=== PATIENT | female | born 1950 | race Caucasian/White ===

== ENCOUNTER → 2023-11-26 10:19 | Outpatient (REF) | payer MEDICARE, SELFPAY | LOC: HWRAD 10:19 | PROVIDERS: ATTENDING PHYSICIAN Nurse Practitioner Family; FAMILY PHYSICIAN Family Medicine | DX: C18.7 Malignant neoplasm of sigmoid colon (principal) | CPT/HCPCS: 71260; 74177; Q9967 ==

== ENCOUNTER → 2023-12-19 06:29 | Day surgery (SDC) | payer MEDICARE, SELFPAY | LOC: GI 06:29 | PROVIDERS: ATTENDING PHYSICIAN Surgery | DX: Z12.11 Encounter for screening for malignant neoplasm of colon (principal); D12.0 Benign neoplasm of cecum; D12.2 Benign neoplasm of ascending colon; K57.30 Diverticulosis of large intestine without perforation or abscess without bleeding; Z85.038 Personal history of other malignant neoplasm of large intestine; Z98.0 Intestinal bypass and anastomosis status | CPT/HCPCS: 45385; 45380; 45381; 88305 ==

== ENCOUNTER 2024-01-03 09:53 | Outpatient (RCR) | payer MEDICARE, SELFPAY | END 2024-01-03 23:59 | disposition home or self-care (01) | LOC: RPT 09:53 | PROVIDERS: ATTENDING PHYSICIAN Family Medicine | DX: G20.A1 Parkinson's disease without dyskinesia, without mention of fluctuations (principal); Z73.6 Limitation of activities due to disability; R26.2 Difficulty in walking, not elsewhere classified; M62.81 Muscle weakness (generalized) | CPT/HCPCS: 97110; 97112; 97163; 97530 ==

== ENCOUNTER 2024-02-04 09:54 | Outpatient (RCR) | payer MEDICARE, SELFPAY | END 2024-02-04 23:59 | disposition home or self-care (01) | LOC: RPT 09:54 | PROVIDERS: ATTENDING PHYSICIAN Family Medicine | DX: G20.A1 Parkinson's disease without dyskinesia, without mention of fluctuations (principal); Z73.6 Limitation of activities due to disability; R26.2 Difficulty in walking, not elsewhere classified; M62.81 Muscle weakness (generalized) | CPT/HCPCS: 97110; 97112; 97116; 97530 ==

== ENCOUNTER 2024-03-04 10:55 | Outpatient (RCR) | payer MEDICARE, SELFPAY | END 2024-03-04 23:59 | disposition home or self-care (01) | LOC: RPT 10:55 | PROVIDERS: ATTENDING PHYSICIAN Family Medicine | DX: G20.A1 Parkinson's disease without dyskinesia, without mention of fluctuations (principal); Z73.6 Limitation of activities due to disability; R26.2 Difficulty in walking, not elsewhere classified; M62.81 Muscle weakness (generalized) | CPT/HCPCS: 97010; 97110; 97112; 97116; 97530 ==

== ENCOUNTER 2024-03-27 11:57 | Outpatient (RCR) | payer MEDICARE, SELFPAY | END 2024-03-27 23:59 | disposition home or self-care (01) | LOC: RPT 11:57 | PROVIDERS: ATTENDING PHYSICIAN Family Medicine | DX: G20.A1 Parkinson's disease without dyskinesia, without mention of fluctuations (principal); Z73.6 Limitation of activities due to disability; R26.2 Difficulty in walking, not elsewhere classified; M62.81 Muscle weakness (generalized) | CPT/HCPCS: 97110; 97112; 97530 ==

== ENCOUNTER → 2024-05-01 07:07 | Outpatient (REF) | payer MEDICARE, SELFPAY | LOC: PAVMRI 07:07 | PROVIDERS: ATTENDING PHYSICIAN Student in an Organized Health Care Education/Training Program; FAMILY PHYSICIAN Family Medicine | DX: M47.816 Spondylosis without myelopathy or radiculopathy, lumbar region (principal); M48.062 Spinal stenosis, lumbar region with neurogenic claudication | CPT/HCPCS: 72148 ==

== ENCOUNTER 2024-06-06 09:50 | Outpatient (RCR) | payer MEDICARE, SELFPAY | END 2024-06-06 23:59 | disposition home or self-care (01) | LOC: ROT 09:50 | PROVIDERS: ATTENDING PHYSICIAN Family Medicine | DX: G20.C Parkinsonism, unspecified (principal); G20.A1 Parkinson's disease without dyskinesia, without mention of fluctuations (principal); R26.81 Unsteadiness on feet; Z73.6 Limitation of activities due to disability; M62.81 Muscle weakness (generalized) | CPT/HCPCS: 97110; 97112; 97116; 97163; 97167; 97530 ==

== ENCOUNTER 2024-06-13 09:56 | Outpatient (RCR) | payer MEDICARE, SELFPAY | END 2024-06-13 23:59 | disposition home or self-care (01) | LOC: ROT 09:56 | PROVIDERS: ATTENDING PHYSICIAN Family Medicine | DX: G20.A1 Parkinson's disease without dyskinesia, without mention of fluctuations (principal); R26.81 Unsteadiness on feet; M62.81 Muscle weakness (generalized); Z73.6 Limitation of activities due to disability; G20.C Parkinsonism, unspecified | CPT/HCPCS: 97110; 97112; 97116; 97530 ==